=== PATIENT | female | born 1990 | race Caucasian/White ===

== ENCOUNTER 2021-04-04 06:48 | Emergency (ER) | payer OTHER ==
[~2021-04-04 06:48] MED LIST: COLACE 100MG C100 MG PO; FEOSOL325 MG PO; IBUPROFEN600 MG PO; KEFLEX500 MG PO; LORTAB 5-325 M1 EACH PO
[2021-04-04 07:45] LABS: HEMOGLOBIN 14.4 gm/dl (12.3-15.3); RED BLOOD COUNT 5.16 M/UL (4.00-5.10); WHITE BLOOD COUNT 19.1 K/UL (4.5-11.0)
[2021-04-04 08:09] LABS: BUN/CREATININE RATIO 12 (0-10)
[2021-04-04] MEDS ORDERED: ZOFRAN ODT 4 MG4 MG PO (12:43)
[2021-04-04] MEDS ORDERED: OMNICEF 300 MG300 MG PO (12:43)
[2021-04-04] MEDS ORDERED: IBUPROFEN800 MG PO (12:43)
== END 2021-04-04 12:50 | disposition home or self-care (01) ==
LOC: ER1 06:48
PROVIDERS: Emergency Medicine
DX: N12 Tubulo-interstitial nephritis, not specified as acute or chronic (principal)
CPT/HCPCS: 71045; 80053; 81001; 83605; 83690; 85025; 87040; 96374; 99284; J0696; J7030; Q9967